=== PATIENT | female | born 1955 | race Caucasian/White ===

== ENCOUNTER → 2019-06-24 13:41 | Outpatient (CLI) | payer BC, SELFPAY ==
--- NOTE | 2019-06-24 | IMM_PTH ---
PATIENT: JAMIA OSEI LOC: [facility] U#:[id number] AGE/SX: 70/F ROOM: RE06/24/[address]: Dr. Tushar Tejada MD : 1955 BED: DIS: SPEC #: [id number] RECD: 06/25/19 13:40 STATUS: KAY RESatnam #: [id number] ALST: 06/24/19 00:[address]: Tushar Tejada DEPT: IMMUNOHISTOCHEMISTRY RECD BY: Susana Gallo Tissues: Endometrium, NOS Procedures: MSH2 (add) MLH-1 (add) MSH6 (add) Anti-PMS2 (add) CEA (add) CK19 (add) KI-67 (add) P53 (add) TX (add) Vimentin (add) ER (initial) PHYSICIAN & INSTITUTION [place] [id number] SPECIMEN INFORMATION: Tissue Source: Endometrial biopsy Clinical Info: Postmenopausal bleeding Specimen Number: [id number] CPT code: 30091, 12014 x8, 09698 x2 METHODOLOGY: Deparaffinized sections of prefer/formalin-fixed tissue or PAP/DQ stained slides are incubated with monoclonal/polyclonal antibodies/oligonucleotide probes. Localization is made via biotin free immunoperoxidase method. Appropriate controls are performed and reacted as expected. Results on target cell population are indicated in the following table: RESULTS: ANTIBODY / CLONE RESULT ER (6F11) positive TX (1E2) positive Vimentin (V9) positive CK19 (A53-B/A2.26) positive Ki-67 (30-9) positive, low to focal moderate CEA (11-7/TF-3HB-1) negative P53 (DO-7) positive 15-20% MLH1 (M1) positive MSH2 (25D12) negative MSH6 (44) negative PMS2 (BAV6703) positive These tests were developed and their performance characteristics determined by Laboratory. They may not have been cleared or approved by the U.S. Food and Drug Administration. The FDA has determined that such clearance or approval is not necessary. INTERPRETATION: Endometrial biopsy: Endometrial adenocarcinoma. Microsatellite instability present (total loss of 2/4 immunohistochemical markers). AM:vinicius 06/26/19 Case has been reviewed in consultation with Dr. Horne who concurs with the above diagnosis. IDC:[email or web address]
--- NOTE | 2019-06-24 12:30 | EMB_PTH ---
PATIENT: JAMIA OSEI LOC: [facility] U#:[id number] AGE/SX: 70/F ROOM: RE06/24/[address]: Dr. Tushar Tejada MD : 1955 BED: DIS: SPEC #: [id number] RECD: 06/24/19 13:36 STATUS: KAY ALISHA #: [id number] LAST: 06/24/19 12:[address]: Tushar Tejada DEPT: SURGICAL PATHOLOGY RECD BY: Susana Gallo Tissues: Endometrium, NOS Procedures: Surgery Specimen Level IV HEADER OPERATION: Endometrial biopsy PRE-OP DIAGNOSIS: Postmenopausal bleeding TISSUE SUBMITTED: Endometrial biopsy MICROSCOPIC DIAGNOSIS Endometrium, biopsy: Endometrial adenocarcinoma with clear cell features, FIGO grade 2. See comment. AM:vinicius 06/25/19 COMMENT Immunohistochemistry ([id number]) supports the above diagnosis. Approximately 20% of the tumor contains clear cell morphology. Case has been reviewed in consultation with Dr. Horne who concurs with the above diagnosis. IDC:[email or web address] MICROSCOPIC DESCRIPTION Slides are reviewed. GROSS DESCRIPTION Received is one container labeled with the patient's name and not further designated. The specimen consists of multiple irregular fragments of rivera mucoid tissue that in aggregate measure 3 x 2.5 x 0.3 cm. The specimen is totally submitted in one cassette. / RADHA:vinicius 06/24/19 TC:0 CPT: 40325
[2019-06-29 17:31] LABS: HPV Reflexed? NOT INDICATED
== END ==
PROVIDERS: Referring Provider Obstetrics & Gynecology; Visit Provider Obstetrics & Gynecology
DX: N95.0 Postmenopausal bleeding (principal)
CPT/HCPCS: 87624; 88175; 88305; 88341; 88342; G0145

== ENCOUNTER → 2019-07-08 | Outpatient (CLI) | payer MEDICARE, SELFPAY ==
[2019-06-30 10:37] VITALS: BMI 29.0
--- NOTE | 2019-07-08 10:43 | ECHOD_ITS ---
Reason For Study: Murmur Procedure This was a 2D Doppler, Color Flow transthoracic echocardiogram. Myocardial strain analysis was performed in this exam to aid in the assessment of cardiac function. The study was technically difficult. Difficult Parasternal view due to breast implant. Exam performed in department. Left Ventricle Normal size and thickness. The estimated ejection fraction is 65 %. Stage 1 diastolic dysfunction. No regional wall motion abnormalities noted. Right Ventricle Normal size and thickness. Normal systolic function. Atria Normal left atrium. Normal right atrium. Normal atrial septum. Mitral Valve The mitral valve is structurally normal. No prolapse or stenosis seen. Trivial mitral valve insufficiency. Tricuspid Valve Normal tricuspid valve. Trivial tricuspid valve insufficiency. Right ventricular systolic pressure estimated to be 27 mmHg. Aortic Valve Trisinus/trileaflet aortic valve. Moderate focal aortic valve thickening. Moderate diffuse aortic valve thickening. Moderate restriction of the aortic valve. Moderate aortic stenosis. Peak aortic valve gradient 50 mmHg. Mean aortic valve gradient 30 mmHg. Calculated aortic valve area (continuity equation) is 0.8 cm2. Trivial aortic valve insufficiency. Pulmonic Valve Normal pulmonic valve. Great Vessels Calcified aortic root. Normal arch. Normal inferior vena cava. Inferior vena cava collapse with sniff. Pericardium/Pleural No pericardial effusion. MMode/2D Measurements & Calculations LVIDd: 3.0 cm IVSd: 1.0 cm LVOT diam: 2.0 cm LVIDs: 2.0 cm LVPWd: 0.94 cm LVOT area: 3.1 cm2 RVDd: 2.8 cm FS: 31.7 % Ao root diam: 2.9 cm LAV(MOD-bp): 26.3 ml LVAd ap4: 19.3 cm2 LAV(MOD-bp) Indexed: 15.3 ml/m2 EDV(MOD-sp4): 42.2 ml LAV(MOD-sp2): 43.9 ml EDV(sp4-el): 44.1 ml LAV(MOD-sp4): 16.0 ml LVAs ap4: 10.9 cm2 ESV(MOD-sp4): 17.3 ml ESV(sp4-el): 17.3 ml EF(MOD-sp4): 59.0 % EF(sp4-el): 60.7 % SV(MOD-sp4): 24.9 ml SV(sp4-el): 26.7 ml LA A4 area: 9.4 cm2 LA dimension(2D): 3.1 cm RA A4 area: 9.0 cm2 Doppler Measurements & Calculations MV E max matthieu: 84.2 cm/sec Lat Peak E' Matthieu: 6.4 cm/sec Med Peak E' Matthieu: 6.0 cm/sec MV A max matthieu: 104.9 cm/sec E/E' lat: 13.2 E/E' med: 14.0 MV E/A: 0.80 Ao V2 max: 352.6 cm/sec LV V1 max: 94.4 cm/sec SV(LVOT): 63.7 ml Ao max P.7 mmHg LV V1 max P.6 mmHg Ao V2 mean: 262.5 cm/sec LV V1 mean P.1 mmHg Ao mean P.2 mmHg LV V1 mean: 70.4 cm/sec Ao V2 VTI: 79.8 cm LV V1 VTI: 20.5 cm FRANDY(I,D): 0.80 cm2 FRANDY(V,D): 0.83 cm2 PA V2 max: 83.8 cm/sec TR max matthieu: 234.4 cm/sec TR max P.0 mmHg Interpretation Summary The estimated ejection fraction is 65 %. Stage 1 diastolic dysfunction. Trivial tricuspid valve insufficiency. Right ventricular systolic pressure estimated to be 27 mmHg. Moderate to severe aortic stenosis. Peak aortic valve gradient 50 mmHg. Mean aortic valve gradient 30 mmHg. Calculated aortic valve area (continuity equation) is 0.8 cm2. Trivial aortic valve insufficiency. There is no comparison study available. Ordering Physician: Tyrese Virk Referring Physician: Raman Penny Performed By: Betzaida Morales, BETO, RVT
== END | disposition home or self-care (01) ==
PROVIDERS: Family Provider Family Medicine; PCP Family Medicine; Referring Provider Internal Medicine Cardiovascular Disease; Visit Provider Internal Medicine Cardiovascular Disease
DX: Z01.810 Encounter for preprocedural cardiovascular examination (principal); R01.1 Cardiac murmur, unspecified; R06.09 Other forms of dyspnea; R60.9 Edema, unspecified
CPT/HCPCS: 93306

== ENCOUNTER → 2019-07-10 | Outpatient (CLI) | payer MEDICARE, SELFPAY ==
[2019-06-30 10:37] VITALS: BMI 29.0
--- NOTE | 2019-07-10 09:38 | STEWCON_ITS ---
Reason For Study: PRE OP/UTERINE CANCER Stress Results Protocol: Dobutamine with definity Maximum Predicted HR: 154 bpm Target HR: 131 bpm % Maximum Predicted HR: 86 % DurationHeart Rate Stage (mm:ss) (bpm) BP Comment BASELINE 87 133/58 10 MCG 3:00 100 117/42 20 MCG 2:28 133 103/48 RECOVERY 97 134/733 CC DEFINITY TOTAL FOR TEST Stress Duration: 5:28 mm:ss Maximum Stress HR: 133 bpm Baseline Echocardiogram Findings The estimated ejection fraction is 65 %. Stress Echo Wall motion Data Resting WM Intermediate WM Stress WM Resting Wall Motion Wall Motion Stress No regional wall motion No regional wall motion abnormalities noted. abnormalities noted. EKG Data The baseline ECG displays normal sinus rhythm. The patient was titrated from 10 mcg to a maximum of 20 mcg of dobutamine during the stress. The maximum heart rate attained was 134 beats per minute. This was 87% of maximum predicted heart rate. During dobutamine infusion, there were no ST or T wave changes noted to suggest ischemia. No clinical angina was noted. Doppler Measurements & Calculations Ao V2 max: 423.4 cm/sec Ao max P.7 mmHg Interpretation Summary The estimated ejection fraction is 65 %. Normal, adequate dobutamine echocardiogram. Negative for ischemia by EKG and echocardiographic criteria. No anginal symptoms noted. Rare PVC noted. Appropriate blood pressure response to dobutamine. Test terminated due to the attainment of target heart rate. Final LVEF is 75%. Decreased sensitivity due to poor echo windows requiring Definity agent. No complications. The study was technically difficult. Contrast injection was performed. Ordering Physician: Tyrese Virk Referring Physician: Tyrese Virk Performed By: Mona Blackwood, RDCS, RVT
== END | disposition home or self-care (01) ==
PROVIDERS: Family Provider Family Medicine; PCP Family Medicine; Referring Provider Internal Medicine Cardiovascular Disease; Visit Provider Internal Medicine Cardiovascular Disease
DX: Z01.810 Encounter for preprocedural cardiovascular examination (principal); R06.09 Other forms of dyspnea; E11.9 Type 2 diabetes mellitus without complications; J44.9 Chronic obstructive pulmonary disease, unspecified; R01.1 Cardiac murmur, unspecified; R60.9 Edema, unspecified
CPT/HCPCS: 93017; 93350; J7040; Q9957; A4216; C8928

== ENCOUNTER → 2020-08-05 | Outpatient (CLI) | payer MEDICARE, SELFPAY ==
[2020-07-19 12:09] VITALS: BMI 27.1
--- NOTE | 2020-08-05 14:05 | ECHOD_ITS ---
Reason For Study: AOSRTIC STENOSIS Procedure This was a 2D Doppler, Color Flow transthoracic echocardiogram. The study was technically difficult. Exam performed in department. Left Ventricle Normal LV size. The estimated ejection fraction is 65 %. Stage 2 diastolic dysfunction. No regional wall motion abnormalities noted. Right Ventricle Normal RV size. Normal systolic function. Atria The left atrium is moderately enlarged. Normal right atrium. No doppler evidence for ASD. Mitral Valve There is no mitral valve stenosis. Mild (1+) mitral valve insufficiency. Tricuspid Valve There is no tricuspid stenosis. Trivial tricuspid valve insufficiency. Pulmonary artery systolic pressure is 35 mmHg. Aortic Valve Severe diffuse aortic valve thickening. Severe aortic stenosis. No aortic valve insufficiency. Pulmonic Valve There is no pulmonic valvular stenosis. No pulmonic valve insufficiency. Great Vessels Normal aortic root. Pericardium/Pleural No pericardial effusion. MMode/2D Measurements & Calculations LVIDd: 4.2 cm IVSd: 0.99 cm LVOT diam: 2.0 cm LVIDs: 2.5 cm LVPWd: 0.96 cm LVOT area: 3.1 cm2 RVDd: 3.4 cm FS: 41.1 % Ao root diam: 2.9 cm LAV(MOD-bp): 63.4 ml LA A4 area: 19.2 cm2 LAV(MOD-bp) Indexed: 37.1 ml/m2 LAV(MOD-sp2): 64.0 ml LAV(MOD-sp4): 59.0 ml LA dimension(2D): 3.8 cm RA A4 area: 12.8 cm2 Time Measurements MV dec time: 0.21 sec Doppler Measurements & Calculations MV E max matthieu: 105.8 cm/sec Lat Peak E' Matthieu: 6.8 cm/sec Med Peak E' Matthieu: 5.6 cm/sec MV A max matthieu: 127.3 cm/sec E/E' lat: 15.6 E/E' med: 18.8 MV E/A: 0.83 MV V2 max: 161.3 cm/sec Ao V2 max: 395.1 cm/sec LV V1 max: 96.4 cm/sec MV max P.4 mmHg Ao max P.5 mmHg LV V1 max P.7 mmHg MV V2 mean: 111.0 cm/sec Ao V2 mean: 308.1 cm/sec LV V1 mean P.4 mmHg MV mean P.3 mmHg Ao mean P.4 mmHg LV V1 mean: 74.7 cm/sec MV V2 VTI: 31.2 cm Ao V2 VTI: 99.9 cm LV V1 VTI: 24.6 cm MVA(VTI): 2.4 cm2 FRANDY(I,D): 0.75 cm2 FRANDY(V,D): 0.75 cm2 SV(LVOT): 75.3 ml TR max matthieu: 268.9 cm/sec MV P1/2t-pr_phl: 69.4 msec TR max P.9 mmHg Interpretation Summary Stage 2 diastolic dysfunction. The estimated ejection fraction is 65 %. Mild (1+) mitral valve insufficiency. Severe aortic stenosis. Ordering Physician: Gianfranco Amaya Referring Physician: DIPAK BARDALES Performed By: Mona Blackwood, BETO, RVT
== END | disposition home or self-care (01) ==
PROVIDERS: PCP Family Medicine; Referring Provider Specialist; Visit Provider Specialist
DX: I35.0 Nonrheumatic aortic (valve) stenosis (principal); R60.9 Edema, unspecified
CPT/HCPCS: 93306

== ENCOUNTER → 2020-08-22 | Outpatient (CLI) | payer MEDICARE, SELFPAY ==
[2020-08-22 14:21] VITALS: BMI 26.8
[2020-08-22 16:13] LABS: Absolute Lymphocyte Count 1.19 X10^3/uL (0.83-4.51); Absolute Neutrophil Count 5.1 X10^3/uL (2.0-7.7); Basophil# 0.06 X10^3/uL; Basophil% 0.8 % (0-1); Eosinophil# 0.14 X10^3/uL; Eosinophils% 1.9 % (0-5); Hematocrit 42.1 % (37-47); Hemoglobin 13.1 g/dL (12.0-15.0); Lymphocyte # 1.19 X10^3/ul (4.0); Lymphocyte % 16.3 % (19-41); Mean Corp Hgb Conc 31.1 g/dL (32-36); Mean Corpuscular Hgb 26.6 pg (27.0-32.0); Mean Corpuscular Volume 85.6 fL (81-99); Mean Platelet Vol. 10.4 fl (6.2-12.0); Monocyte# 0.79 X10^3/uL; Monocyte% 10.8 % (0-10); NRBC Flagged by Analyzer 0 % (0-5); Neutrophil # 5.12 X10^3/uL (2.7-7.7); Neutrophil % 69.9 % (47-70); POSITIVE MORPHOLOGY YES; Platelet Count 291 K/mm3 (150-450); RBC Distribution Width CV 25.2 % (11.6-14.6); RBC Distribution Width SD 74.5 fl (35.1-43.9); Red Blood Count 4.92 M/mm3 (4.2-5.4); White Blood Count 7.3 K/mm3 (4.4-11.0)
[2020-08-22 16:23] LABS: Differential Indicated SCAN CRITERIA MET
[2020-08-22 16:34] LABS: ALB/GLOB Ratio 0.8 RATIO (0.9-2.4); AST(SGOT) 9 U/L (15-37); Alanine Aminotransfer ALT/SGPT 15 U/L (13-56); Albumin, Serum 3.2 g/dL (3.2-5.0); Alkaline Phosphatase 115 U/L (45-117); Anion Gap 4 (5-15); BUN 15 mg/dL (7-18); Calcium,Total 9.2 mg/dL (8.5-10.1); Chloride 106 mmol/L (98-107); EST Glomerular Filtration Rate 106 mL/min (>60); Est Glom Filt Rate - Afr Amer 128 mL/min (>60); Glucose 120 mg/dL (74-106); Potassium 3.9 mmol/L (3.5-5.1); Protein, Total 7.2 g/dL (6.4-8.2); Sodium Level 139 mmol/L (136-145)
[2020-08-22 16:50] LABS: Differential Comment SCANNED
== END | disposition home or self-care (01) ==
LOC: LAB 15:03
PROVIDERS: PCP Family Medicine; Referring Provider Specialist; Visit Provider Specialist
DX: R60.9 Edema, unspecified (principal); R06.09 Other forms of dyspnea
CPT/HCPCS: 36415; 80053; 85025

== ENCOUNTER 2020-09-08 08:28 | Day surgery (SDC) | payer MEDICARE, SELFPAY ==
[2020-08-22 14:21] VITALS: BMI 26.8
[2020-09-07 07:53] VITALS: BMI 26.8
--- NOTE | 2020-09-08 08:06 | HP_ITS ---
HPI HPI History of Present Illness Surgical H&P: Yes Details: 06/30/19: Mrs. Greco is a very pleasant 64-year-old female with a history of diabetes, hyperlipidemia, COPD, who was referred for preoperative stratification. Patient is an ongoing smoker and smokes 1 pack/day for the past 50 years. She has had PFTs in the past and is demonstrated mild COPD. She is on no inhalers. She is currently on Actos and metformin for her diabetes. She has no known cardiac disease in the past. Patient was diagnosed with left-sided breast cancer in 1997 and underwent left- sided mastectomy followed by chemotherapy. She has had regular mammograms of the other breast since that time and apparently has been clean. Patient most recently developed spotting and went to go see her PHOTOVOLTAIC INSTALLATION TECHNICIAN. Apparently a biopsy showed possible endometrial or fallopian tubal cancer, and she requires a hysterectomy in the near future. Her physical exam at that time demonstrated a murmur which was previously unknown to the patient. Patient reports difficulty with ambulation exercise mostly due to severe back pain of an unknown cause although it appears to be degenerative in nature. She denies any exertional chest pain, angina, but has baseline shortness of breath and dyspnea on exertion which has not appreciably worsened over the last year. She has noted increased early satiety, and worsening lower extremity edema. In our office today her blood pressure is 100/40, pulse is 88 and regular. Physical exam demonstrates 2+ carotid upstroke bilaterally, no radiation of her murmurs to her carotids her clavicles, a 3/6 holosystolic murmur best heard at the lower left sternal border and appears to radiate to the right side, no S3 or S4. She has 1+ bilateral lower extremity edema to the knees. EKG dated 06/30/2019 shows normal sinus rhythm, normal axis, normal intervals, left atrial enlargement, no evidence of previous myocardial infarction. Lipids are pending. 07/19/20: Patient was seen previously for preoperative evaluation. She was found to have moderate aortic stenosis and also underwent a stress echo which was unremarkable. Patient has been having fatigue, lower extremity edema over the last 2 months. She saw her primary care physician who apparently told her that she is losing blood somewhere. It looks like patient's hemoglobin was low based on what she is saying. 08/22/2020: Since last visit patient had a 2D echo which reveals severe attic stenosis. Patient does have dyspnea on exertion which is new. She mentions that she has anemia for which she has gone evaluation by her PCP and so far no cause has been found. We do not have results of her prior hemoglobin levels. She has not had a blood transfusion and states that her hemoglobin levels are stable. Intake Vital Signs 08/22/20 Height 5 ft 2.5 in 08/22/20 Weight: 149 lb 08/22/20 BP 124/60 H 08/22/20 Blood Pressure Location Rt brachial 08/22/20 Position Sitting 08/22/20 Respiration 16 08/22/20 Pulse 80 08/22/20 Pulse Source Auscultation 08/22/20 BMI 27.1 Intake Visit Reasons: Discuss echo, possible cath Farm Reporter Required: No Is patient in pain?: No Allergies No Known Allergies Allergy (Verified 08/22/20 14:23) Medications atorvastatin 40 mg tablet 40 mg PO QHS 06/29/19 [History Confirmed 08/22/20] metformin 500 mg tablet 500 mg PO BID 06/29/19 [History Confirmed 08/22/20] pioglitazone 30 mg tablet 30 mg PO DAILY 06/29/19 [History Confirmed 08/22/20] cyanocobalamin (vitamin B-12) 1,000 mcg capsule 1,000 mcg PO BID cap 06/30/19 [History Confirmed 08/22/20] ferrous sulfate 325 mg (65 mg iron) tablet 325 mg PO BID 07/19/20 [History Confirmed 08/22/20] furosemide 20 mg tablet 20 mg PO DAILY #60 tab 07/19/20 [Rx Confirmed 08/22/20] Ejection fraction %: 65 to 70 [facility] Medical History Dyspnea on exertion (Chronic) Edema (Chronic) Heart murmur (Chronic) Type 2 diabetes mellitus without complication (Chronic) COPD (chronic obstructive pulmonary disease) (Chronic) History of breast cancer (Resolved) Preop cardiovascular exam (Inactive) Surgical History History of arthroscopy of left knee (Resolved ~1983) History of cholecystectomy (Resolved ~1991) History of hysterectomy (Resolved ~03/2020) History of left mastectomy (Resolved ~1997) Family History Father COPD (chronic obstructive pulmonary disease) CVA (cerebral vascular accident) Mother Cancer [place] chorea Brother Diabetes Social History (Updated 08/22/20 @ 15:[address] Gianfranco Amaya MD) Smoking Status: Current every day smoker alcohol intake: never substance use type: does not use caffeine: Yes Type: coffee Number of servings: 2 ROS Const Const: Negative for fatigue, weakness, headache(s), frequent falls, difficulty sleeping or excessive sweating Eyes Eyes: Negative for loss of peripheral vision, transient loss of vision, blurry vision, double vision or tunnel vision ENT ENT: Positive for balance problems; negative for headache(s), dizziness or Nosebleed/epistaxis Cardio Chest Pain: No Palpitations: No Edema: Bilateral Muscle aches with walking: None Resp Respiratory: Positive for SOB with activity; negative for SOB at rest, SOB orthopnea\SOB lying down, Cough or paroxysmal nocturnal dyspnea GI GI: Negative nausea, vomiting, heartburn or black,tarry stools : Negative for hematuria Musc Musc: Positive for balance problems; negative for muscle aches/ myalgia, muscle weakness or joint pain Skin Skin: Negative non-healing lesions, rash or unusual bruising Neuro Neuro: Negative for dizziness, lightheadedness, near syncope, syncope, frequent falls, headache(s), weakness, blurry vision, double vision or lack of coordination Paulo Hematologic/Lymphatic: Negative for easy bleeding or easy bruising Endo Endo: Negative for fatigue, excessive sweating or increased thirst/drinking Psych Psych: Negative for anxiety or depression Allergy Allergy/Immunology: Negative for hives, Negative for rash Cardiology Exam Const Appearance: cooperative; negative acute distress Nutritional Appearance: well nourished Head Head: normocephalic and atraumatic Ears: hearing grossly normal bilaterally Nose: external nose normal Face and Sinus: face symmetric Mouth: moist mucous membranes Teeth and gingiva: fair dentition Eyes General: appearance normal, both eyes and all related structures Eyelids: eyelids normal Conjunctivae: conjunctivae normal Neck Neck: trachea midline and no JVD Chest Chest inspection: symmetric chest movement; negative pursed lip breathing Auscultation: Bilateral: Clear to Auscultation Cardio Rate: regular rate Rhythm: regular rhythm Heart sounds: S1 normal and S2 normal Murmur: Grade 3/6 and early systolic GI GI: normal to inspection Neuro General: alert, awake and oriented x3 Gait: Negative ataxic Skin Skin: no rashes or lesions noted; negative atrophy or jaundice Extremities Pulses: Normal: Right Posterior Tibial Pulse, Left Posterior Tibial Pulse Lower Extremity Edema: None: Bilateral Musculoskel Musculoskeletal: No joint tenderness Psych Psychological: normal affect Assessment & Plan 1. Aortic valve stenosis, etiology of cardiac valve disease unspecified I35.0 Plan Patient now has severe aortic stenosis. She has dyspnea on exertion. She has other medical issues that could be contributing to her shortness of breath as well. She does have apparently anemia and also COPD. We will check her hemoglobin today. We will also get records from PCP regarding prior numbers. If her hemoglobin is stable and at a reasonable value then we will proceed with coronary angiography to see if patient needs CABG in addition to her AVR. If her hemoglobin level is significantly low then we may have to correct that to see if she is symptomatic from her severe aortic stenosis. 2. Dyspnea on exertion R06.00 Plan Could be secondary to her severe aortic stenosis in addition to underlying anemia and COPD. Management as mentioned under aortic stenosis. 3. Chronic obstructive pulmonary disease, unspecified COPD type J44.9 Plan Detail Follow Up 4 Weeks Coding Level of Care Code Off vis,est,level 4 Diagnoses Aortic valve stenosis, etiology of cardiac valve disease unspecified I35.0 ??Cardiac valve disease etiology: etiology unspecified Dyspnea on exertion R06.00 Chronic obstructive pulmonary disease, unspecified COPD type J44.9 ??COPD type: unspecified COPD Coding Level of Care Code Off vis,est,level 4 Diagnoses Aortic valve stenosis, etiology of cardiac valve disease unspecified I35.0 ??Cardiac valve disease etiology: etiology unspecified Dyspnea on exertion R06.00 Chronic obstructive pulmonary disease, unspecified COPD type J44.9 ??COPD type: unspecified COPD Supplemental Info Supplemental Information Diagnostics Electrocardiogram 06/30/19 Echocardiogram 08/05/20 Stress Echocardiogram 07/10/19
--- NOTE | 2020-09-08 08:46 | RAD_ITS ---
STUDY: X-RAY CHEST REASON FOR EXAM: Female, 65 years old. [place], AORTIC STENOSIS. NO CHEST COMPLAINTS TODAY. PRE-HEART CATH THIS A.M. TECHNIQUE: PA and lateral views of the chest. COMPARISON: None. FINDINGS: The patient is status post left mastectomy and external dissection with left breast prosthesis. Hyperinflation. Scattered calcified granulomas. There is no demonstrated pleural abnormality. Normal size heart. Normal mediastinum and kd. Normal visualized pulmonary arteries. There is atherosclerotic calcification of the aortic arch with tortuosity. There are diffuse degenerative changes of the visualized thoracic spine. Normal visualized ribs, clavicles, and shoulders. There is no demonstrated abnormality of the visualized soft tissue structures of the upper abdomen. RAD/Chest PA and Lateral IMPRESSION: Hyperinflation. Electronically Signed: Yonas Cantu, at 10:04 EDT , Service support ,
[2020-09-08 08:57] LABS: International Normalized Ratio 0.9; Prothrombin Time (Protime)PT. 12.1 SECONDS (11.7-14.9)
[2020-09-08 08:58] LABS: Partial Thromboplast Time 32.3 Seconds (24.1-36.2)
--- NOTE | 2020-09-12 17:03 | CL.D_ITS ---
Patient Name: JAMIA OSEI Study Date: 09/08/2020 Performing: Delgado Amaya MD Ht: 63 inches 159 cm : 1955 Wt: 150.1 lbs 68 kg Age: 65 Gender: female BSA: 1.7 PROCEDURE(S) PERFORMED [facility] CLINICAL PROFILE AND INDICATIONS Indications: Valvular Disease Heart Failure: None Stress/Imaging Stress/Image Study Performed: No CAD Presentations: Other: Severe CONCLUSIONS No significant obstructive CAD. RECOMMENDATIONS Refer for AVR DESCRIPTION OF PROCEDURE The patient arrived to the procedure lab. The risks and benefits of the procedure as well as a full d escription of our services here and current unavailability of surgical backup were fully explained to the patient and/or their significant other prior to the catheterization. The Timeout was completed, verifying the correct patient and procedure. The patient's procedural site was prepped and draped in the usual fashion. Local anesthetic was given subcutaneously to right radial region with Lidocaine 2% . Using a modified Seldinger technique, arterial access was obtained via the right radial artery, a 6 Fr sheath was inserted. Left Coronary Artery selective angiography was performed in multiple views u sing a 5 Fr. JL3.5 catheter. Right Coronary Artery selective angiography was then performed in multip le views using a 5 Fr. JR 4 catheter.The arterial sheath was pulled and a TR Band was applied for hem ostasis w/ 12ml air CORONARY ANGIOGRAPHY DOMINANCE: Right Dominant LEFT MAIN: No significant disease noted LEFT ANTERIOR DESCENDING ARTERY: Angiographically normal CIRCUMFLEX ARTERY: Angiographically normal RIGHT CORONARY ARTERY: Mild luminal irregularities COMPLICATIONS No Complications PROCEDURE MEDICATIONS Versed 1 mg IV Fentanyl 50 mcg IV Oxygen: 2 L/min via nasal cannula Heparin given IA 09/08/2020 11:58:57 Verapamil 2.5mg, Ntg 100mcgs, 3000 units of Heparin given IA 09/08/2020 11:58:57 IV Bolus: .9 NaCl 150ml total 09/08/2020 12:02:22 SUMMARY OF HEMODYNAMIC DATA Time AIR REST ECG 09:21:58 AO 76/59 (72) SA 12:01:36 AO 92/63 (76) 12:06:21 Signed By Delgado Amaya MD On 09/12/2020 17:02:28 Delgado Amaya MD
== END 2020-09-08 13:55 | disposition home or self-care (01) ==
LOC: CLSP 08:30
PROVIDERS: PCP Family Medicine; Referring Provider Specialist; Visit Provider Specialist
DX: I35.0 Nonrheumatic aortic (valve) stenosis (principal); R06.00 Dyspnea, unspecified; J44.9 Chronic obstructive pulmonary disease, unspecified; D64.9 Anemia, unspecified; E11.9 Type 2 diabetes mellitus without complications; E78.5 Hyperlipidemia, unspecified; F17.210 Nicotine dependence, cigarettes, uncomplicated; Z79.84 Long term (current) use of oral hypoglycemic drugs; Z79.899 Other long term (current) drug therapy
CPT/HCPCS: 36415; 71046; 85610; 85730; 93005; 93458; 99152; 99153; J7040; C1769; C1894; Q9967

== ENCOUNTER → 2021-01-05 10:05 | Outpatient (CLI) | payer MEDICARE, SELFPAY ==
[2020-09-07 07:53] VITALS: BMI 26.8
--- NOTE | 2021-01-05 17:11 | PFTCOMP_ITS ---
COMPLETE PULMONARY FUNCTION TEST INTERPRETATION Brief HPI: Patient is a 65 year old female, currently under the care of Mary Lou Hurley, who presents to [facility] for complete pulmonary function tests secondary to diagnosis of dyspnea. Respiratory therapist reports good effort and reproducible results. Interpretation: Forced expiration spirometry shows a mild large airways obstructive ventilatory defect with an FEV1 of 70% predicted. There is no significant bronchodilator r esponse by strict ATS criteria. Spirograms are of good quality and plateau slowly, indicating slowly emptying areas of the lungs. The respiratory flow volume loop shows decreased expiratory flow rates at all lung volumes consistent with airway obstruction. Lung volumes by body plethysmography show a normal total lung capacity at 4.41 L, 95% predicted. All other lung volumes are within normal limits. Diffusion capacity by carbon monoxide is decreased at 53% predicted. The airway resistance is elevated. No previous pulmonary function tests were available for review. Impression: Irreversible mild large airways obstructive ventilatory defect with a disproportionate reduction in diffusion capacity
== END ==
PROVIDERS: PCP Family Medicine
DX: J43.9 Emphysema, unspecified (principal); F17.200 Nicotine dependence, unspecified, uncomplicated; R06.00 Dyspnea, unspecified; R06.02 Shortness of breath; I35.0 Nonrheumatic aortic (valve) stenosis; R42 Dizziness and giddiness; R53.83 Other fatigue
CPT/HCPCS: 94060; 94726; 94729

== ENCOUNTER → 2021-02-16 10:38 | Outpatient (CLI) | payer MEDICARE, SELFPAY ==
[2021-02-16 09:24] VITALS: BMI 28.3
[2021-02-16 11:38] LABS: Absolute Lymphocyte Count 0.81 X10^3/uL (0.83-4.51); Absolute Neutrophil Count 6.6 X10^3/uL (2.0-7.7); Basophil# 0.04 X10^3/uL; Basophil% 0.5 % (0-1); Eosinophil# 0.05 X10^3/uL; Eosinophils% 0.6 % (0-5); Hematocrit 30.5 % (37-47); Hemoglobin 9.5 g/dL (12.0-15.0); Lymphocyte # 0.81 X10^3/ul (4.0); Lymphocyte % 9.7 % (19-41); Mean Corp Hgb Conc 31.1 g/dL (32-36); Mean Corpuscular Hgb 27.2 pg (27.0-32.0); Mean Corpuscular Volume 87.4 fL (81-99); Mean Platelet Vol. 9.6 fl (6.2-12.0); Monocyte# 0.81 X10^3/uL; Monocyte% 9.7 % (0-10); NRBC Flagged by Analyzer 0 % (0-5); Neutrophil # 6.56 X10^3/uL (2.7-7.7); Platelet Count 410 K/mm3 (150-450); RBC Distribution Width CV 15.4 % (11.6-14.6); RBC Distribution Width SD 49.4 fl (35.1-43.9); Red Blood Count 3.49 M/mm3 (4.2-5.4); White Blood Count 8.3 K/mm3 (4.4-11.0)
[2021-02-16 12:53] LABS: ALB/GLOB Ratio 0.6 RATIO (0.9-2.4); AST(SGOT) 13 U/L (15-37); Alanine Aminotransfer ALT/SGPT 18 U/L (13-56); Albumin, Serum 2.7 g/dL (3.2-5.0); Alkaline Phosphatase 113 U/L (45-117); Anion Gap 7 (5-15); BUN 16 mg/dL (7-18); BUN/Creat Ratio 21.4 RATIO (10-20); Calcium,Total 8.6 mg/dL (8.5-10.1); Chloride 96 mmol/L (98-107); Creatinine, Serum 0.75 mg/dL (0.55-1.02); EST Glomerular Filtration Rate 82 mL/min (>60); Est Glom Filt Rate - Afr Amer 100 mL/min (>60); Globulin 4.3 g/dL (2.2-4.2); Glucose 174 mg/dL (74-106); Potassium 2.7 mmol/L (3.5-5.1); Sodium Level 136 mmol/L (136-145)
== END ==
PROVIDERS: PCP Family Medicine; Referring Provider Physician Assistant Medical; Visit Provider Physician Assistant Medical
DX: I35.0 Nonrheumatic aortic (valve) stenosis (principal); R09.02 Hypoxemia
CPT/HCPCS: 36415; 80053; 83880; 85025

== ENCOUNTER → 2021-02-20 12:32 | Outpatient (CLI) | payer MEDICARE, SELFPAY ==
[2021-02-16 09:24] VITALS: BMI 28.3
[2021-02-20 14:02] LABS: Anion Gap 5 (5-15); BUN 10 mg/dL (7-18); BUN/Creat Ratio 14.6 RATIO (10-20); Calcium,Total 8.6 mg/dL (8.5-10.1); Chloride 101 mmol/L (98-107); Creatinine, Serum 0.68 mg/dL (0.55-1.02); EST Glomerular Filtration Rate 91 mL/min (>60); Est Glom Filt Rate - Afr Amer 110 mL/min (>60); Glucose 119 mg/dL (74-106); Potassium 4.3 mmol/L (3.5-5.1); Sodium Level 133 mmol/L (136-145)
== END ==
PROVIDERS: PCP Family Medicine; Referring Provider Physician Assistant Medical; Visit Provider Physician Assistant Medical
DX: E87.6 Hypokalemia (principal)
CPT/HCPCS: 36415; 80048

== ENCOUNTER → 2022-07-24 | Outpatient (CLI) | payer MEDICARE, SELFPAY ==
--- NOTE | 2022-07-24 12:22 | ECHOD_ITS ---
Reason For Study: AO VALVE REPLACEMENT Procedure This was a 2D Doppler, Color Flow transthoracic echocardiogram. Exam performed in department. Left Ventricle Normal LV size. Mild concentric left ventricular hypertrophy. Left ventricular systolic function is normal. The estimated ejection fraction is 60 %. Stage 1 diastolic dysfunction. No regional wall motion abnormalities noted. Right Ventricle Normal RV size. Normal systolic function. Atria Normal left atrium. Normal right atrium. Mitral Valve Normal mitral valve. Mild (1+) eccentric mitral valve insufficiency. Tricuspid Valve Normal tricuspid valve. Mild tricuspid valve insufficiency. Pulmonary artery systolic pressure is 26 mmHg. Aortic Valve Peak aortic valve gradient 10 mmHg. Mean aortic valve gradient 5 mmHg. Stable appearing bioprosthetic aortic valve apparatus. Pulmonic Valve Normal pulmonic valve. Great Vessels Normal aortic root. The pulmonary artery is normal size. Normal inferior vena cava. Pericardium/Pleural No pericardial effusion. MMode/2D Measurements & Calculations LVIDd: 3.9 cm IVSd: 1.2 cm LVOT diam: 2.0 cm LVIDs: 2.4 cm LVPWd: 1.2 cm LVOT area: 3.0 cm2 FS: 38.4 % LAV(MOD-bp): 53.0 ml LVAd ap4: 21.8 cm2 SV(MOD-sp4): 41.3 ml LAV(MOD-bp) Indexed: 28.0 ml/m2 LVLd ap4: 7.3 cm LAV(MOD-sp2): 66.6 ml EDV(MOD-sp4): 55.3 ml LAV(MOD-sp4): 41.7 ml EDV(sp4-el): 55.3 ml LVAs ap4: 9.4 cm2 LVLs ap4: 5.7 cm ESV(MOD-sp4): 14.0 ml ESV(sp4-el): 13.4 ml EF(MOD-sp4): 74.6 % EF(sp4-el): 75.9 % SV(sp4-el): 42.0 ml LA A4 area: 17.7 cm2 LA dimension(2D): 3.8 cm RA A4 area: 14.0 cm2 Time Measurements MV dec time: 0.30 sec Doppler Measurements & Calculations MV E max matthieu: 105.7 cm/sec Lat Peak E' Matthieu: 6.4 cm/sec Med Peak E' Matthieu: 6.3 cm/sec MV A max matthieu: 109.8 cm/sec E/E' lat: 16.5 E/E' med: 16.7 MV E/A: 0.96 MV V2 max: 104.9 cm/sec Ao V2 max: 160.7 cm/sec MV max P.4 mmHg MV dec slope: 355.0 cm/sec2 Ao max P.4 mmHg MV V2 mean: 77.4 cm/sec Ao V2 mean: 103.4 cm/sec MV mean P.6 mmHg Ao mean P.1 mmHg MV V2 VTI: 32.5 cm Ao V2 VTI: 31.3 cm MVA(VTI): 2.0 cm2 FRANDY(I,D): 2.1 cm2 FRANDY(V,D): 1.8 cm2 LV V1 max: 98.7 cm/sec MR max matthieu: 504.1 cm/sec SV(LVOT): 66.2 ml LV V1 max P.9 mmHg MR max P.7 mmHg LV V1 mean P.3 mmHg MR mean matthieu: 392.3 cm/sec LV V1 mean: 70.8 cm/sec MR mean P.8 mmHg LV V1 VTI: 22.0 cm MR VTI: 167.2 cm PA V2 max: 90.4 cm/sec TR max matthieu: 243.0 cm/sec PA V2 mean: 59.8 cm/sec TR max P.7 mmHg ECHO/Echo Complete Interpretation Summary Normal LV size. Left ventricular systolic function is normal. The estimated ejection fraction is 60 %. Mild (1+) eccentric mitral valve insufficiency. Stable appearing bioprosthetic aortic valve apparatus. Mild concentric left ventricular hypertrophy. Stage 1 diastolic dysfunction. Ordering Physician: Tushar Morales Referring Physician: Tushar Morales Performed By: Oralia Duffy RCS
== END | disposition home or self-care (01) ==
LOC: CVS 12:21
PROVIDERS: PCP Family Medicine; Referring Provider Nurse Practitioner Family; Visit Provider Nurse Practitioner Family
DX: Z95.2 Presence of prosthetic heart valve (principal)
CPT/HCPCS: 93306

== ENCOUNTER → 2024-09-30 | Outpatient (CLI) | payer MEDICARE, SELFPAY ==
--- NOTE | 2024-09-30 15:30 | RAD_ITS ---
INDICATION: SOB EXAMINATION/TECHNIQUE: X-RAY - XR Chest 2 Views COMPARISON: September 08, 2020 FINDINGS: LINES/DEVICES: Sternotomy wires are present since a previous study LUNGS: No consolidation, edema or effusion. Interstitial prominence. Left pulmonary granuloma. No pneumothorax. MEDIASTINUM AND CARDIOVASCULAR STRUCTURES: Cardiac silhouette not enlarged. Central airways and mediastinal contour are unremarkable. BONES AND SOFT TISSUES: Degenerative vertebral changes and scoliosis. Surgical clips over the left axilla. RAD/Chest PA and Lateral IMPRESSION: Interstitial prominence. Electronically Signed: Leonid Cruz DO at 9:33 EST Reading Location ID and State: [facility] / [place] Tel [phone], Service support ,
[2024-09-30 16:34] LABS: Absolute Lymphocyte Count 0.71 X10^3/uL (0.83-4.51); Basophil# 0.05 X10^3/uL; Basophil% 0.7 % (0-1); Eosinophils% 4.3 % (0-5); Hematocrit 32.7 % (37-47); Hemoglobin 10.1 g/dL (12.0-15.0); Lymphocyte # 0.71 X10^3/ul (0.83-4.51); Lymphocyte % 10.1 % (19-41); Mean Corp Hgb Conc 30.9 g/dL (32-36); Mean Corpuscular Hgb 28.1 pg (27.0-32.0); Mean Corpuscular Volume 90.8 fL (81-99); Mean Platelet Vol. 10.2 fl (6.2-12.0); Monocyte# 0.95 X10^3/uL; Monocyte% 13.5 % (0-10); NRBC Flagged by Analyzer 0 % (0-5); Neutrophil # 5.01 X10^3/uL (2.7-7.7); Platelet Count 246 K/mm3 (150-450); RBC Distribution Width CV 15.2 % (11.6-14.6); RBC Distribution Width SD 50.7 fl (35.1-43.9); White Blood Count 7.1 K/mm3 (4.4-11.0)
[2024-09-30 17:08] LABS: BNP,B-Type NATRIURETIC PEPTIDE 76.4 pg/mL (0-100)
[2024-09-30 17:09] LABS: ALB/GLOB Ratio 0.9 RATIO (0.9-2.4); AST(SGOT) 7 U/L (15-37); Alanine Aminotransfer ALT/SGPT 14 U/L (13-56); Albumin, Serum 3.2 g/dL (3.2-5.0); Alkaline Phosphatase 100 U/L (45-117); Anion Gap 5 (5-15); BUN 26 mg/dL (7-18); BUN/Creat Ratio 23.4 RATIO (10-20); Calcium,Total 9.1 mg/dL (8.5-10.1); Chloride 105 mmol/L (98-107); Creatinine, Serum 1.11 mg/dL (0.55-1.02); EST Glomerular Filtration Rate 51 mL/min (>60); Est Glom Filt Rate - Afr Amer 62 mL/min (>60); Globulin 3.4 g/dL (2.2-4.2); Glucose 171 mg/dL (74-106); Potassium 4.4 mmol/L (3.5-5.1); Protein, Total 6.6 g/dL (6.4-8.2); Sodium Level 138 mmol/L (136-145)
== END | disposition home or self-care (01) ==
LOC: RAD 15:21
PROVIDERS: PCP Family Medicine; Referring Provider Nurse Practitioner Family; Visit Provider Nurse Practitioner Family
DX: R06.09 Other forms of dyspnea (principal); Z95.2 Presence of prosthetic heart valve
CPT/HCPCS: 36415; 71046; 80053; 83880; 85025